=== PATIENT | female | born 1980 | race Caucasian/White ===

== ENCOUNTER → 2017-01-13 | Outpatient (CLI) | payer BC ==
[~2017-01-13] MED LIST: MTR600X PO; OXYC-57 PO; PREN1TAB29 PO; THYR15TA PO
== END | disposition home or self-care (01) ==
LOC: C.PAPS 15:05
PROVIDERS: ATTEND Obstetrics & Gynecology
DX: Z12.4 Encounter for screening for malignant neoplasm of cervix (principal)

== ENCOUNTER → 2017-01-22 | Outpatient (CLI) | payer BC ==
--- NOTE | 2017-01-22 15:59 | MAMMOGRAPHY REPORT ---
ULTRASOUND OF LEFT BREAST: 01/22/2017 CLINICAL HISTORY: The patient is currently breast-feeding. She reports a lump in the left breast wh ich is most prominent before nursing and then decreases in size after nursing. She also has associa todd intermittent pain in the region. COMPARISON: Comparison is made to exam dated: 05/16/2009. TECHNIQUE: Real-time targeted ultrasound of the left breast was performed. FINDINGS: Real-time, high resolution targeted ultrasound was performed of the area of the palpable lump pointe d out by the patient, in the left breast at approximately 12:00, 3 cm from the nipple. There are ex pected lactational changes in the region, without evidence of a discrete cystic or solid mass. A le ft breast implant is noted. IMPRESSION: ACR BI-RADS CATEGORY 2: BENIGN No suspicious sonographic abnormality noted at the site of the palpable lump in the left breast at a pproximately 12:00. There is no sonographic evidence of malignancy. Recommend clinical follow-up; any decision to biopsy should be based on clinical grounds. The patient was verbally notified of th e results. Kathleen Barbosa M.D. ah/:01/22/2017 14:57:05 Senior Portfolio Manager: Kiana PATEL)([place]), [facility] letter sent: Normal 1/2 BI-RADS Code: ACR BI-RADS Category 2: Benign
== END | disposition home or self-care (01) ==
LOC: C.MAMM 13:12
PROVIDERS: ATTEND Obstetrics & Gynecology
DX: N63 Unspecified lump in breast (principal)